=== PATIENT | female | born 1985 | race Hispanic/Latino ===

== ENCOUNTER 2018-03-19 14:42 | Emergency (ER) | payer OTHER ==
[~2018-03-19] VITALS: Ht 152.4 cm; Wt 53.5 kg
--- NOTE | 2018-03-19 18:50 | NUR ---
ENDORSED TO NIGHT NURSE JOSE MCDREMOTT
--- NOTE | 2018-03-19 20:18 | Diagnostic Imaging Report ---
EXAMINATION: CHEST 2 VIEWS INDICATION: Cough. Shortness of breath ^cough, SOB COMPARISON: None FINDINGS: TUBES and LINES: None. LUNGS: Lungs are well inflated. Perihilar peribronchial hazy opacity with linear density in the right hilar region could be due to bronchitis/early viral pneumonia. No consolidated pneumonia. PLEURA: No pleural effusion or pneumothorax. HEART AND MEDIASTINUM: The cardiomediastinal silhouette is unremarkable. BONES AND SOFT TISSUES: No acute osseous lesion. Soft tissues are unremarkable. UPPER ABDOMEN: No free air under the diaphragm. IMPRESSION: Perihilar peribronchial hazy opacity with linear density in the right hilar region could be due to bronchitis/early viral pneumonia Signed by: Dr. Bacilio Melgar M.D. on 03/19/2018 8:15 PM
[2018-03-19] MEDS ORDERED: AZITHROMYCIN250 MG PO (21:03)
== END 2018-03-19 21:25 | disposition home or self-care (01) ==
LOC: ER 14:42
DX: R05 Cough (principal); J00 Acute nasopharyngitis [common cold]; F41.0 Panic disorder [episodic paroxysmal anxiety]
CPT/HCPCS: 71046; 99282

== ENCOUNTER 2018-03-20 18:12 | Emergency (ER) | payer OTHER ==
[~2018-03-20] VITALS: Ht 152.4 cm; Wt 53.5 kg
[~2018-03-20 18:12] MED LIST: AZITHROMYCIN250 MG PO
--- OUTSIDE RECORDS SUMMARY | 2018-03-20 18:14 | XMS REPORT ---
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 Allergies, Adverse Reactions, Alerts This patient has no known allergies or adverse reactions. Medications This patient has no known medications. Results Test Description Test Time Test Comments Text Results Atomic Results Result Comments CHEST 2 VIEWS 2018-03-19 20:14:00 [place] [id number] Patient Name: NAVEEN HERNANDES MR #: [id number] : 1985 Age/Sex: 32/F Req #: [id number] Adm Physician: Ordered by: CECILIO MORROW REHABILITATION PSYCHOLOGIST Report #: [id number] Location: ER Room/Bed: Procedure: [id number] DX/CHEST 2 VIEWS Exam Date: Exam Time: REPORT STATUS: Signed EXAMINATION: CHEST 2 VIEWS INDICATION: Cough. Shortness of breath cough, SOB COMPARISON: None FINDINGS: TUBES and LINES: None. LUNGS: Lungs are well inflated. Perihilar peribronchial hazy opacity with linear density in the right hilar region could be due to bronchitis/early viral pneumonia. No consolidated pneumonia. PLEURA: No pleural effusion or pneumothorax. HEART AND MEDIASTINUM: The cardiomediastinal silhouette is unremarkable. BONES AND SOFT TISSUES: No acute osseous lesion. Soft tissues are unremarkable. UPPER ABDOMEN: No free air under the diaphragm. IMPRESSION: Perihilar peribronchial hazy opacity with linear density in the right hilar region could be due to bronchitis/early viral pneumonia Signed by: Dr. Bacilio Melgar M.D. on 03/19/2018 8:15 PM Dictated By: BACILIO MELGAR MD, MD 14 Transcribed By: KOFI on 03/19/182014 COPY TO: CECILIO MORROW NP
== END 2018-03-20 22:30 | disposition left against medical advice (07) ==
LOC: ER 18:12
DX: R06.00 Dyspnea, unspecified (principal)